=== PATIENT | male | born 1960 | race Caucasian/White ===

== ENCOUNTER 2016-07-28 13:52 | Outpatient (CLI) | payer MEDICARE ==
[2016-07-28 14:31] LABS: #Basophils 0.2 thou/uL (0.0-0.2); #Eosinphils 0.3 thou/uL (0.0-0.7); #Lymphocytes 2.9 thou/uL (1.20-3.40); #Monocytes 0.9 thou/uL (0.11-0.59); %Basophils 1.8 % (0.0-1.0); %Eosinophils 3.1 % (0.0-10.0); %Lymphocytes 25.2 % (21.0-51.0); %Monocytes 8.2 % (0.0-10.0); %Neutrophils 61.7 % (42.0-75.0); Hemoglobin 18.6 g/dL (14.0-18.0); Mean Corpuscular HGB CONC 32.7 g/dL (32.0-36.0); Mean Corpuscular Hemoglobin 29.4 pg (27.0-31.0); Mean Corpuscular Volume 89.8 fl (80.0-94.0); Mean Platelet Volume 7.5 fL (7.4-10.4); Platelet Count 318 thou/uL (130-400); RBC Distribution Width 12.5 % (11.5-14.5); Red Blood Cell (RBC) Count 6.33 mill/uL (4.70-6.10); White Blood Cell (WBC) Count 11.3 thou/uL (4.8-10.8)
[2016-07-28 14:54] LABS: ALT (SGPT) 16 U/L (8-55); AST (SGOT) 16 U/L (5-34); Albumin 3.9 g/dL (3.5-5.0); Alkaline Phosphatase 148 U/L (40-150); Anion Gap 15 mmol/L (10-20); BUN (Urea Nitrogen) 14 mg/dL (8.4-25.7); Bilirubin, Total 0.4 mg/dL (0.2-1.2); Calc. Creatinine Clearance 0 mL/min (70-130); Calcium 9.6 mg/dL (7.8-10.44); Carbon Dioxide 22 mmol/L (22-29); Chloride 102 mmol/L (98-107); Estimated GFR-MDRD Greater than 90; Globulin 3.4 g/dL (2.4-3.5); Glucose 103 mg/dL (70-105); Potassium 4.3 mmol/L (3.5-5.1); Protein, Total 7.3 g/dL (6.0-8.3); Sodium 135 mmol/L (136-145)
== END 2016-07-28 13:53 | disposition home or self-care (01) ==
LOC: MADLAB 13:52
PROVIDERS: ATTEND Student in an Organized Health Care Education/Training Program
DX: G40.409 Other generalized epilepsy and epileptic syndromes, not intractable, without status epilepticus (principal)
CPT/HCPCS: 36415; 80053; 80183; 85025

== ENCOUNTER 2017-05-21 21:51 | Emergency (ER) | payer MEDICARE ==
[2017-05-21] MEDS ORDERED: Triple Antibiotic Oint 1 GM Packet ONE (23:35)
--- NOTE | 2017-05-21 23:40 | CT ---
NONCONTRAST CT CERVICAL SPINE 05/21/17 HISTORY: Injury to cervical and lumbar spine. TECHNIQUE: Contiguous axial CT images are obtained through the cervical spine from the skull base to the T1-2 le everardo. Sagittal and coronal reformat images are provided. COMPARISON: MRI lumbar spine on 09/09/14. FINDINGS: There are postsurgical changes of the cervical spine with bony fusion of the C5 and C6 vertebral bodi es as well as fusion of the posterior elements. I am unsure if this is postsurgical or congenital in origin. There are laminectomy defects in the cervical spine extending from the C2-3 level to the C7-T 1 level. No acute fracture or subluxation is seen involving the cervical spine. There are multilevel degenerative changes with uncinate process hypertrophy and facet hypertrophic ch anges at multiple levels resulting in bony encroachment on the neural foramina are multiple levels. T here is severe bilateral neural foraminal narrowing at C3-4 and C4-5 levels related to the bony encro achment with moderate left and mild right sided neural foraminal narrowing at the C6-7 level. There i s a mild disc bulge present at the C2-3 level narrowing the ventral subarachnoid space. Larger broad based disc bulge is seen at the C3-4 level which was also seen on the prior MRI of the lumbar spine. This does result in mild mass effect on the spinal cord at this level and there is suggestion of mild cord atrophy at this level. There are calcifications seen in the cerebral hemispheres bilaterally. Prior CT of the brain on noted extensive intracranial necrotic metastatic lesions both supratentorial and infratentorial br ain and findings may be related to treated metastatic lesions with associated calcification. However, there are subtle low density areas also present corresponding to findings on prior exam. Prevertebral soft tissues are within normal limits. There is enlargement of the thyroid gland greater on the right with course calcifications seen in the right lobe of the thyroid gland. There is a nodular prominence posteriorly involving the right lobe of the thyroid gland which may represent a thyroid gland although nodule cannot be entirely excluded, but this is isodense to the adjacent thyroid gland. Chronic biapical scarring is present. IMPRESSION: 1. No acute fracture or subluxation involving the cervical spine. 2. Postsurgical changes and degenerative changes of the cervical spine as described above. 3. Calcifications and low density areas within the cerebellar hemispheres bilaterally. These fin dings may be sequela of metastatic disease better visualized on CT of the head on 02/25/17. 4. Mastoid effusions bilaterally. POS: AYAANH
--- NOTE | 2017-05-21 23:55 | CT ---
NONCONTRAST CT LUMBAR SPINE 05/21/17 HISTORY: Cervical spine and low back injury. COMPARISON: CT myelogram on 09/18/14. FINDINGS: Again, there is metallic fusion hardware spanning the L1 and L2 segments resulting in prominent strea k and beam hardening artifact precluding adequate visualization at these levels especially involving the central spinal canal and left neural foramina. Laminectomy defects are again seen at the L2-3 lev el. Postsurgical changes of each ilium is again present likely related to bone graft harvest sites. There is evidence of a fatty filum terminale also noted on the prior exam. Low density cystic lesion is present in the right kidney also seen on CT exam on 02/25/17. Vascular ca lcifications in the abdominal aorta and iliac arteries. There is a right adrenal nodule present which was not appreciated on the prior CT exam. This cannot be characterized as an adrenal adenoma. This n odules measures 2.7 cm. There is prominence of the left adrenal gland as well which also represents i nterval change from prior studies with nodular prominence of the left adrenal gland. T12-L1 level: There is minimal disc bulge, but central spinal canal and neural foramina are patent. L1-2 level: Central spinal canal and left neural foramen at this level are obscured due to metallic b eam hardening artifact. The right neural foramen does appear patent. L2-3 level: There is slight retrolisthesis of L2 on L3 also noted on the prior exam. Posterior osteop hyte formation is present. These findings again result in moderate to severe narrowing of the central spinal canal. There is mild left sided neural foraminal narrowing. The right neural foramen appears patent. L3-4 level: There is a broad based disc osteophyte complex with trace retrolisthesis of L3 on L4. Bro ad based disc osteophyte complex is present. Findings again result in severe narrowing of the central spinal canal at this level. There is moderate bilateral neural foraminal narrowing present. L4-5 level: There is mild broad based disc osteophyte complex and facet hypertrophic changes. Finding s result in only mild narrowing of the central spinal canal with mild to moderate bilateral neural fo raminal narrowing similar to prior exam. L5-S1 level: There is a broad based disc bulge which does mildly efface the ventral aspect of the the devendra sac without significant central canal narrowing. Mild right and mild to moderate left sided neura l foraminal narrowing are present. IMPRESSION: 1. Right adrenal nodule, and there is also nodular prominence of the left adrenal gland. This re presents interval change from prior studies, and findings may be related to metastatic lesions. Right adrenal lesion is larger in size measuring 2.7 cm. 2. Multilevel degenerative changes lumbar spine with findings again most pronounced at the L2-3 and L3-4 levels with severe narrowing of the central spinal canal. Postsurgical changes of the lumbar spine stable from prior study. 3. Hypodense right renal lesion not well characterized on this exam but was present on CT abdome n and pelvis in 2017. 4. No fracture is seen involving the lumbar spine. 5. Subtle lytic lesion in the T12 vertebral body anteriorly measuring 12 mm which may represent a metastatic lesion. No additional lytic or sclerotic osseous lesions are appreciated. This was proba panfilo present in 2017 although better visualized on this exam. POS: MANI
--- NOTE | 2017-05-21 23:59 | RAD ---
THREE VIEWS RIGHT WRIST 05/21/17 HISTORY: Right wrist joint pain. FINDINGS: There is no fracture or dislocation. The fourth and fifth metacarpals do appear foreshortened which i s developmental in origin. No other osseous abnormality. IMPRESSION: No acute osseous abnormality right wrist. If patient continues to experience pain, followup views of the wrist can be performed in 4 to 7 days to exclude an occult fracture. POS: MANI
== END 2017-05-21 23:47 | disposition home or self-care (01) ==
LOC: MADERS 21:51
DX: S61.411A Laceration without foreign body of right hand, initial encounter (principal); S61.511A Laceration without foreign body of right wrist, initial encounter; S16.1XXA Strain of muscle, fascia and tendon at neck level, initial encounter; S39.012A Strain of muscle, fascia and tendon of lower back, initial encounter; J44.9 Chronic obstructive pulmonary disease, unspecified; F17.210 Nicotine dependence, cigarettes, uncomplicated; Z79.899 Other long term (current) drug therapy; W19.XXXA Unspecified fall, initial encounter
CPT/HCPCS: 72125; 72131